=== PATIENT | male | born 2000 | race Caucasian/White ===

== ENCOUNTER 2024-02-23 16:17 | Emergency (ER) | payer BC, MEDICAID ==
[2024-02-23] MEDS ORDERED: Naloxone 0.4 MG/ML SDV IVPUSH PRN (17:05)
[2024-02-23 17:18] LABS: BASOPHILS ABSOLUTE AUTO 0.02 K/uL (0.00-0.20); BASOPHILS PERCENT AUTO 0.2 % (0.0-2.0); EOSINOPHILS ABSOLUTE AUTO 0.05 K/uL (0.00-0.50); EOSINOPHILS PERCENT AUTO 0.4 % (0.0-5.0); HEMATOCRIT 45.1 % (39.0-49.0); HEMOGLOBIN 15.4 g/dL (13.1-16.8); LYMPHOCYTES ABSOLUTE AUTO 2.24 K/uL (0.50-3.50); MEAN CORPUSCULAR HEMOGLOBIN 28.6 pg (28.2-33.3); MEAN CORPUSCULAR HGB CONC 34.1 g/dL (31.7-36.0); MEAN CORPUSCULAR VOLUME 83.8 fL (84.0-98.0); MONOCYTES ABSOLUTE AUTO 0.95 K/uL (0.00-1.00); MONOCYTES PERCENT AUTO 7.6 % (2.0-14.0); NEUTROPHILS ABSOLUTE AUTO 9.19 K/uL (1.40-7.00); NEUTROPHILS PERCENT AUTO 73.8 % (45.0-80.0); PLATELET COUNT,PLT 236 K/uL (150-350); RED BLOOD CELL COUNT 5.38 M/uL (4.33-5.41); RED CELL DISTRIBUTION WIDTH 12.7 % (11.2-14.1); WHITE BLOOD CELL COUNT,WBC 12.5 K/uL (4.0-10.2)
[2024-02-23 17:40] LABS: INR 1.2 (0.9-1.1); PROTHROMBIN TIME 11.9 SEC (9.0-11.1)
[2024-02-23 17:44] LABS: ALBUMIN 4.6 g/dL (3.4-5.0); ANION GAP 10.1 meq/L (7-15); BILIRUBIN TOTAL 1.1 mg/dL (0.2-1.0); CALCIUM 9.6 mg/dL (8.5-10.1); CARBON DIOXIDE,CO2 26.9 mmol/L (21.0-32.0); CREATININE 1.01 mg/dL (0.51-1.17); EST CRCL DRUG DOSING (CG) 134.51 mL/min; POTASSIUM,K 3.9 mmol/L (3.5-5.1); PROTEIN TOTAL,TP 8.1 g/dL (6.4-8.2)
[2024-02-23] MEDS: Iopamidol 612 MG/ML 100 ML Bottle IVPUSH ONE (17:45)
[2024-02-23] MEDS: Ondansetron 4 MG/2 ML SDV IVPUSH ONE (18:01)
[2024-02-23] MEDS: fentaNYL 50 MCG/ML SDV IVPUSH ONE ×3 (18:03→20:00)
[2024-02-23] MEDS: Sodium Chloride 0.9% 10 ML Syringe FLUSH PRN (20:01)
== END 2024-02-23 20:08 ==
LOC: LL.ED 16:17
DX: K35.890 Other acute appendicitis without perforation or gangrene (principal); Z88.8 Allergy status to other drugs, medicaments and biological substances
CPT/HCPCS: 36415; 74160; 80053; 85025; 85610; 96374; 96375; 96376; 99285; J2405; J3010; Q9967; J3490